=== PATIENT | male | born 1980 | race Caucasian/White ===

== ENCOUNTER 2017-05-05 10:54 | Inpatient (IN) | payer OTHER ==
[~2017-05-05] VITALS: Ht 172.7 cm; Wt 76.3 kg
[~2017-05-05 10:54] MED LIST: DELZICOL400 MG PO; GABAPENTIN400 MG PO; METRONIDAZOLE500 MG PO; PREDNISONE20 MG PO; PRILOSEC20 MG PO; VANCOMYCIN HCL125 MG PO
--- NOTE | 2017-05-05 13:38 | NUR ---
PATIENT ARRIVED TO MS UNIT FROM ED. PATIENT UP TO BATHROOM TO VOID. BACK TO BED. VS OBTAINED. PATIENT RATES ABD PAIN IN LUQ 4/10. PATIENT STATES THAT IS A TOLERABLE LEVEL FOR HIM. CALL LIGHT IN REACH.
--- NOTE | 2017-05-05 14:42 | NUR ---
PATIENT UP TO BATHROOM WITH ASSIST FROM CO. PATIENT HAD A LARGE STOOL WHICH WAS LIGHT BROWN WITH BRIGHT RED BLOOD. LOOSE/SOFT IN APPEARANCE. VOIDED. BACK TO BED. PATIENT STILL RATES PAIN ABOUT A 4/10 IN LUQ. DENIES FURTHER NEEDS. CALL LIGHT IN REACH.
--- NOTE | 2017-05-05 14:49 | NUR ---
PT IS RESTING IN BED SAFELY WITH RESTRAINTS AND TWO GUARDS IN ROOM. PT DID NOT NEED ANYTHING AT THE MOMENT
--- NOTE | 2017-05-05 15:34 | NUR ---
AMBULATED TO BATHROOM WITH ASSIST FROM CO. BACK TO BED. C/O INCREASING PAIN 09/18. PAIN MEDICATION ADMINISTERED PER JUN. DENIES FURTHER NEEDS. CALL LIGHT IN REACH.
--- NOTE | 2017-05-05 15:59 | NUR ---
PATIENT PASSED SMALL AMOUNT OF BRIGHT RED BLOOD MIXED WITH MUCOUS (ABOUT 5CC) VIA RECTUM. URINE CLEAR YELLOW.
[2017-05-05] MEDS ORDERED: OMEPRAZOLE20 MG PO (16:08)
[2017-05-05] MEDS ORDERED: ZYRTEC10 MG PO (16:08)
[2017-05-05] MEDS ORDERED: CULTURELLE1 EACH PO (16:08)
--- NOTE | 2017-05-05 16:11 | NUR ---
MED REC COMPLETE
--- NOTE | 2017-05-05 17:00 | NUR ---
patient resting in bed. mouth swabs delivered. patient rates luq pain 3/10. denies the need for pain medication. call light in reach.
--- NOTE | 2017-05-05 18:00 | NUR ---
PATIENT UP TO BATHROOM. PASSED MORE BLOODY STOOL. VOIDED. BACK TO BED. STATES HE FEELS LIGHTHEADED AND DIZZY. OBTAINED VS. HR IN THE 120'S. CALLED DR. CASTRO AND LEFT A MESSAGE. PATIENT RATING PAIN A 7/10 IN LUQ. ADMINISTERED DILAUDID PER MAR. PATIENT STATES HE FEELS THE WAY HE DID BEFORE HE WAS "ADMITTED TO THE CCU LAST TIME." PATIENT APPEARS TO BE VERY ANXIOUS AT THIS POINT. STATES HE FEELS DEHYDRATED. CALL LIGHT IN REACH.
--- NOTE | 2017-05-05 18:36 | NUR ---
STARTED IV BOLUS. PATIENT STATES PAIN IS BETTER AFTER PAIN MEDICATION. PATIENT APPEARS MUCH MORE RELAXED.
--- NOTE | 2017-05-05 19:40 | NUR ---
PT IN BED, [address] 2 LUIZ ROY IN ROOM WITH PT. DR CASTRO IN ROOM ASSESSING PT AND EXPLAINED PROS AND CONS AF AM COLONOSCOPY. PERMIT SIGNED. PT DENIES HAVING ANY QUESTIONS
--- NOTE | 2017-05-05 20:00 | NUR ---
RECEIVED REPORT AT 1900. FOUND PT IN BED WITH 2 GUARDS AT BEDSIDE. MD CASTRO WAS AT BEDSIDE WELL. PT HAD NO IMEDIATE CONCERNS.
--- NOTE | 2017-05-05 22:00 | NUR ---
HR RATE IS 90'S -110. TEMP IS 99.8. OTHER V/S ARE WDL. ABD SOUNDS ARE PRESENT, PT NOW IS DRINKING BOWEL PREP. BLOODY BM'S CONTINUE THE SAME SINCE ADMISSION. ABD IS MILDLY DISTENDED ACCORDING TO PT. LUQ AND LLQ ARE TENDER TO TOUCH. ALL LOBES ARE CLEAR, NO PERIPHERAL EDEMA NOTED. PT DENIES N/V SO FAR, PAIN IS TOLERABLE STATED BY PT. WILL CONTINUE TO MONITOR.
--- NOTE | 2017-05-05 23:00 | NUR ---
PT HAD ONE EPISODE OF EMESIS 400ML. I BELIEVE HE DRANK THE BOWEL PREP TOO FAST. 8MG OF ZOFRAN WAS GIVEN.
--- NOTE | 2017-05-06 00:15 | NUR ---
PT IS IN BED RESTING. PT STATED THAT HE NAUSEA IS BETTER.
--- NOTE | 2017-05-06 02:05 | NUR ---
V/S ARE WDL. HIS TEMP IS NORMAL, HIS HR AT THIS TIME IS IN THE 80'S. PT LOOKS A LITTLE PALLOR NOW THAN AT START OF SHIFT. RUQ, LUQ,RLQ ARE HYPOACTIVE IN REGARDS TO BOWEL TONES AT THIS TIME. LLQ HAS NORMAL ACTIVE BOWEL TONES. PT HAS HAD SEVERAL BLOODY STOOLS WITH BOWEL PREP. HE HAS ABOUT 400ML MORE TO DRINK. ALL LOBES ARE CLEAR, HIS ABD SEEMS SLIGHTLY MORE DISTENDED IN COMPARISON TO START OF THIS SHIFT. HE STATES THAT HIS PAIN IS STILL TOERABLE SO FAR. WILL CONTINUE TO MONITOR.
--- NOTE | 2017-05-06 02:45 | NUR ---
I AM CALLING MD CASTRO IN REGARDS TO PT NAUSEA. I CANNOT GIVE ANY MORE PRN ZOFRAN AT THIS TIME.
--- NOTE | 2017-05-06 03:00 | NUR ---
RECEIVED ORDER FOR 12.5MG IV PHENERGAN Q16HRS PRN FROM MD CASTRO.
--- NOTE | 2017-05-06 04:00 | NUR ---
PT USED RESTROOM AGAIN, STOOL IS STILL BLOODY. PER MD CASTRO THE REST OF HIS BOWEL PREP CAN BE D/C. PT IS BACK IN BED TRYING TO SLEEP SOME.
--- NOTE | 2017-05-06 05:57 | NUR ---
PT AT START OF SHIFT HAD A HR IN 120'S, 2000ML LR BOLUS WAS GIVEN, BOWEL PREP WAS GIVEN. PT HAD SEVERAL BLOODY BM'S THROUOUT THE NIGHT. LAST BM WAS JUST LIQUID WITHOUT BLOOD PRESENT PER DANCE PROFESSOR. PT HAD N/V WITH 400ML EMESIS, PRN ZOFRAN AND PHENERGAN WAS GIVEN. NO PAIN MEDICATION NEEDED SO FAR. V/S NOW ARE ALL WDL. ABD SOUNDS AT START OF SHIFT WERE WDL, AT THIS TIME THEY ARE HYPOACITVE. ABD IS DISTENDED SOME.
--- NOTE | 2017-05-06 07:51 | NUR ---
RECIEVED BEDSIDE REPORT FROM CRISTA OAKES. PT JUST RETURNED FROM X-RAY. PT AWAKE AND ALERT. PT NPO, NAUSEA. SCOPE SCHEDULED FOR LATER TODAY. CORRECTIONAL GUARDS IN ROOM, CORRECTIONAL RESTRAINTS X2.
--- NOTE | 2017-05-06 09:10 | NUR ---
PT OFF THE FLOOR TO SCOPE. UNRESTRAINED, GUARDS WITH PT.
--- NOTE | 2017-05-06 09:22 | HP ---
[facility] [address], [place] [address] Signed ADMISSION DATE: 05/05/2017 REASON FOR ADMISSION: Ulcerative colitis in flare (most likely). HISTORY: This 37-year-old white man has been incarcerated for 13 years with 3-1/2 years remaining on his sentence. He is at [facility], and under the care of Dr. Barkley. He has also been evaluated and treated by a pan helper in [facility] and is well established to have ulcerative colitis for at least 3 years. His usual regimen includes mesalamine. He was directed to the emergency room from Dr. Barkley (presumably) today, as the patient has had recurrence of diarrhea and some rectal bleeding. He has not been systemically toxic, but has had a few weeks by the sounds of it of rectal bleeding, diarrhea, essentially ulcerative colitis in flare. Notes were reviewed from the [facility] showing that he was dehydrated and had been admitted to the [facility], where he was given normal saline. His stool was sent for assessment to include C difficile and so forth. I do not have the results of those studies. His most recent medication regimen has included prednisone 60 mg daily starting on April 14, tapering down to 10 mg every other day. He is on Zofran and Delzicol 800 mg t.i.d. He has seen pan helper, Dr. Rogers at [facility] and has been considered for biologic therapy, which the patient "holds the line on." Worried primarily of the side effects of a biologic therapy and noting that an aunt that he has with ulcerative colitis had intolerance to biologic agent within 2 doses. Surgical remedy has not been thoroughly reviewed, though the issue of an ileostomy has been described. I gather, he has not had much discussion regarding total proctocolectomy with ileoanal pull-through (J-pouch), which is a curative approach. At this time, he presented to the emergency room, was evaluated by Dr. Villalobos and although not systemically toxic, was told that he was sent here to have a colonoscopy. I directly admitted the patient site and seen given his confusing situation to better characterize his current situation initiate therapy for ulcer colitis in flare and if appropriate, initiate measures to allow for colonoscopy. PAST MEDICAL HISTORY: Does include lumbar spine surgery, having undergone a microdiskectomy in September of this year, which was curative to his chronic low back pain. REVIEW OF SYSTEMS: Electronically Signed By: LYDIA CASTRO MD 05/06/17 0922 PATIENT NAME: VERNON WOODWARD HISTORY AND PHYSICAL DATE OF : 82 PHYSICIAN: LYDIA CASTRO MD REPORT #: [id number] REPORT IS CONFIDENTIAL AND NOT TO BE RELEASED WITHOUT AUTHORIZATION [facility] [address], [place] [address] Signed He denies any shortness of breath or chest pain. He is having no hematemesis. He has had medium red bloody bowel movements since his admission. SOCIAL HISTORY: He is incarcerated as previously described. He is from [facility], where his family is. 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 He has maintained a low residue diet lately. PHYSICAL EXAMINATION: GENERAL: Pleasant white man. He does not look systemically toxic. He is mildly anxious. HEENT: Trachea is midline. Mucous membranes are slightly dry. CHEST: Clear. HEART: Regular without murmur. ABDOMEN: Nontender at this time and is not distended. EXTREMITIES: Show no clubbing, cyanosis, or edema. ABDOMEN: KUB shows a fair amount of stool within the colon. No sign of toxic megacolon at all. Note is also made of a CT scan performed in May 2016, nearly a year ago showing no particular worrisome findings other than inflammatory changes of the rectosigmoid. CT scan in March 2015 was reviewed, which showed some mid sigmoidal inflammatory change. LABORATORY DATA: Current lab studies show a white count of 5.8, hematocrit 31.1, platelets 264,000, and Chem profile, which was essentially normal including liver enzymes, which were normal. Albumin is 3.6. ASSESSMENT: The patient likely has ulcerative colitis in flare, though there is more stool in the colon than I would have expected. The blood that he has almost certainly is related to inflammatory change, no doubt related to his underlying ulcerative colitis. He does not look systemically toxic and certainly has no clinical or radiographic evidence of toxic megacolon. At this point, we will initiate a typical regimen for ulcerative colitis in flare to include hydrocortisone 100 mg IV q.8 hours, DVT prophylaxis given the increased risk of thrombosis, cytoprotection protection of the stomach and the bowel prep, anticipating colonoscopy tomorrow to assess the state of his current problem. The risks of bleeding, infection, and perforation related to colonoscopy were reviewed as well. He understands. Consideration might be made in his case, as he does like a reasonable Electronically Signed By: LYDIA CASTRO MD 05/06/17 0922 PATIENT NAME: VERNON WOODWARD HISTORY AND PHYSICAL DATE OF : 82 PHYSICIAN: LYDIA CASTRO MD REPORT #: [id number] REPORT IS CONFIDENTIAL AND NOT TO BE RELEASED WITHOUT AUTHORIZATION [address], [place] [address] Signed candidate for consideration of total proctocolectomy with ileoanal pull-through (J-pouch operation). For now, he needs to be settled down in his current problem. He seems particularly resistant to the concept of biologic agents for control of his problem though they would likely be effective generally speaking. MD ALANA Garces/EUSEBIOL /[id number] cc: MD Fitz Jaime DO Electronically Signed By: LYDIA CASTRO MD 05/06/17 0922 PATIENT NAME: VERNON WOODWARD HISTORY AND PHYSICAL DATE OF : 82 PHYSICIAN: LYDIA CASTRO MD REPORT #: [id number] REPORT IS CONFIDENTIAL AND NOT TO BE RELEASED WITHOUT AUTHORIZATION
--- NOTE | 2017-05-06 09:52 | NUR ---
05/06/17 0952 Myrtle Durant 0943 PATIENT ARRIVES SLEEPING, RESPONSIVE TO VERBAL STIMULI, SHAKES HEAD NO TO PAIN, NAUSEA, OR NEEDS, THEN BACK TO SLEEP. LAYING ON LEFT SIDE. RESP EVEN AND UNLABORED, MASK AT 6 LITERS. 0950 PATIENT SLEEPING. ROOM AIR AT 96%.
--- NOTE | 2017-05-06 11:54 | NUR ---
LAB REPORTS BLOOD IS READY. NO ORDER TO ADMINISTER AT THIS TIME.
--- NOTE | 2017-05-06 13:25 | NUR ---
assisted patient back from the br. patient tolerated ambulating well. cont to have randall blood stool. remains the same as before. no pain at this time. patient assisted to edge of bed. patient stating no other needs at this time. ivf restarted.
--- NOTE | 2017-05-06 14:50 | NUR ---
PT RESTING COMFORTABLLY, EYES CLOSED. OPENS EYES TO VOICE. PT REPORTS NO PAIN, GOAL PAIN IS 5.
--- NOTE | 2017-05-06 16:37 | NUR ---
AT 10:52 THIS MORNING I GOT THE PATIENT A CUP OF ICE AND GLASS OF APPLE JUICE.
--- NOTE | 2017-05-06 18:26 | NUR ---
PT WENT TO COLONOSCOPY THIS SHIFT. MULTIPLE BLOODY LIQUID BM. PT REPORTS MOST RECENT BM LOOKED BLACK. PT RECIEVED STEROID ENEMA THIS SHIFT, DID NOT RETAIN LONG RECOMMENDED. IV SOLUMEDROL Q 6HR. PT APPROPRIATE WITH STAFF. TOLERATING CLEAR LIQUIDS WELL. VOIDING WELL.
--- NOTE | 2017-05-06 19:30 | NUR ---
RECIEVED BEDSIDE REPORT FROM DAY SHIFT NURSE. PATIENT RESTING IN BED. STATES PAIN IS AT A TOLERABLE LEVEL. IVF INFUSING W/O DIFFICULTY. DENIES NEEDS AT THIS TIME. CALL LIGHT IN REACH.
--- NOTE | 2017-05-06 20:05 | NUR ---
ROUNDED CHARGE. PATIENT IS GETTING READY TO AMBULATE IN THE HALLWAY. PATIENT DENIES ANY PAIN. PATIENT IS ASSISTED BY X2 GUARDS. PATIENT DENIES ANY NEEDS, COMMENTS, QUESTIONS, OR CONCERNS.
--- NOTE | 2017-05-06 21:00 | NUR ---
PATIENT RESTING IN BED. UP TO BATHROOM WITH ASSIST FROM CO. VOIDED. PASSED SMALL AMOUNT OF LOOSE BLOODY/DARK GREEN STOOL. STATES PAIN AT A TOLERABLE LEVEL, RATES PAIN 4-5/10, MOST SEVERE IN LUQ. LUNGS CLEAR, HR REGULAR, BS ACTIVE. REFILLED WATER PITCHER. CRANBERRY JUICE DELIVERED. PATIENT DENIES FURTHER NEEDS. CALL LIGHT IN REACH.
--- NOTE | 2017-05-06 21:44 | NUR ---
VITALS AND I&OS DONE AND CHARTED. BEDSIDE TABLE AND CALL LIGHT WITHIN REACH.
--- NOTE | 2017-05-06 22:59 | NUR ---
ASSISTED PATIENT WITH SHOWER SETUP. PATIENT PASSED SMALL AMOUNT OF BLOODY STOOL. QUARTER SIZED CLOT NOTED IN STOOL. VOIDING PALE YELLOW. DENIES FURTHER NEEDS.
--- NOTE | 2017-05-06 23:34 | NUR ---
PATIENT OUT OF SHOWER. DENIES NEEDS.
--- NOTE | 2017-05-06 23:50 | NUR ---
BED LINEN CHANGED. SCDS IN PLACE. AJ DELIVERED. PATIENT DENIES NEEDS. IVF INFUSING W/O DIFFICULY. CALL LIGHT IN REACH.
--- NOTE | 2017-05-07 02:13 | NUR ---
PT IS RESTING WITH EYES CLOSED, RESPIRATIONS EVEN AND NONLABORED. CALL LIGHT WITHIN REACH AND 2 CORRECTIONAL OFFICERS ARE IN ROOM.
--- NOTE | 2017-05-07 03:43 | NUR ---
PATIENT RESTING IN BED. UP TO BATHROOM WITH ASSISTANCE FROM CO. VOIDED AND PASSED SMALL AMOUNT OF BLOODY/MUCOUSY STOOL. DENIES NEEDS. CALL LIGHT IN REACH.
--- NOTE | 2017-05-07 04:20 | NUR ---
PT ASSESSED, HE HAS LUQ PAIN 7/10 AND WAS GIVEN PHENERGAN AND A SPLINT, NEW IV BAG HUNG. PT'S RESPIRATIONS ARE EVEN AND NONLABORED, BOWEL TONES ARE ACTIVE. PT IS GOING TO TRY TO REST, WILL CONTINUE TO MONITOR.
--- NOTE | 2017-05-07 04:26 | NUR ---
PATIENT REQUESTING FOR PAIN MEDICATION. PATIENT STATES PAIN STARTED TO FEEL LIKE A STABBING SENSATION IN HIS LUQ. HE WENT TO THE BATHROOM AND PASSED A SMALL (5-10CC) AMOUNT OF BLOODY/MUCOUSY STOOL. PAIN DID NOT GET BETTER, BUT IT NOW FEELS LIKE A CONSTANT ACHE. PATIENT STATES HE THINKS HE IS GOING TO BECOME NAUSEATED. ADMINISTERED PHENERGAN PER JUN. NOTIFIED PATIENT TO CALL IF PAIN IS NOT RELIEVED BY 0445. BOWEL TONES ARE HYPERACTIVE. NEW BAG IVF INFUSING. PATIENT DENIES FURTHER NEEDS. CALL LIGHT IN REACH.
--- NOTE | 2017-05-07 05:05 | NUR ---
PATIENT STILL C/O PAIN IN LUQ 10/18. SUPPLIED PATIENT WITH ABDOMINAL SPLINT AND WARM PACK.
--- NOTE | 2017-05-07 05:30 | NUR ---
PT SLEPT ON AND OFF THROUGHOUT THE NIGHT. PAIN AND NAUSEA INCREASED SOME LATER IN THE NIGHT AND PHENERGAN HELPED. PT CONTINUES TO HAVE ACTIVE BOWEL TONES AND BLOODY/MUCAS STOOL. HE IS VOIDING QS AND IS ON A CLEAR LIQUID DIET. PT WAS ADVISED TO SLOW DOWN ORAL INTAKE WHEN PAIN INCREASED. IV INFUSING FINE AND PT IS RECEIVING SOLU-CORTEF IV. CONTINUOUS PULSEOX ON AND SCDS. PER REPORT, AWAITING MORNING CBC TO SEE IF PRBC'S NEED TO BE INFUSED.
--- NOTE | 2017-05-07 06:26 | NUR ---
I&OS DONE AND CHARTED. FRESH ICE WATER GIVEN. PT NEEDS NOTHING ELSE AT THIS TIME. BEDSIDE TABLE AND CALL LIGHT WITHIN REACH.
--- NOTE | 2017-05-07 07:20 | NUR ---
RECIEVED BEDSIDE REPORT FROM CRISTA MAGUIRE AND CRISTA POWERS. PT SLEEPING, BREATHING EVEN AND UNLABORED. RN REPORTS PT WAS PAINFUL OVERNIGHT, HAD DIFFICULTLY SLEEPING. MULTIPLE BLOODY BM, CHANGED FROM BLACK/RED TO GREENISH MUCUSY/BLOOD THROUGHOUT THE SHIFT.
--- NOTE | 2017-05-07 07:43 | NUR ---
PATIENT IN BED ASLEEP. WHITEBOARD UPDATED.
--- NOTE | 2017-05-07 09:53 | NUR ---
CALLED DR CASTRO FOR PAIN CONTROL. PT REPORTS 10/18 PAIN. NEW TELEPHONE ORDERS OF 1) TYLENOL 650 PO Q6HR PRN PAIN OR 2) NORCO 5/325 PO Q4 PRN PAIN OR 3) MORPHINE IV 2-6MG IV Q1HR PRN.
--- NOTE | 2017-05-07 10:36 | NUR ---
PT SLEEPING FITFULLY, WAKES TO VOICE. REPORTS PAIN AT 7/10. PRN NORCO GIVEN.
--- NOTE | 2017-05-07 12:52 | NUR ---
PT UP WALKING AROUND THE UNIT. TOLERATING WELL. CORRECTIONAL OFFICERS WITH PT.
--- NOTE | 2017-05-07 13:21 | OR ---
[facility] [address], [place] [address] Signed DATE OF OPERATION: 05/05/2017 SURGEON: Lydia Castro MD PREOPERATIVE DIAGNOSIS: Known ulcerative colitis, probably currently in flare with hematochezia. POSTOPERATIVE DIAGNOSIS: Severe ulcerative colitis extending to the splenic flexure, less inflammation more proximally. PROCEDURE: Total colonoscopy to the cecum with biopsies. ANESTHESIA: Intravenous sedation propofol infusion. ANESTHESIOLOGIST: Vickie Steinberg CRNA. INDICATION: This 37-year-old white man is a patient of Dr. Jr Barkley at [facility] (the [facility]) and has been diagnosed with ulcerative colitis for the past 3 years. He has had been incarcerated for 13 years with 3-1/2 years remaining on his sentence. He has been treated with Delzicol as maintenance therapy for his ulcerative colitis, but in the past several days has had increasing abdominal pain and rectal bleeding. He was referred directly to the emergency room for "colonoscopy." Although he was not toxic in any way and clinical examination shows no sign of peritonitis. I have directly admitted him to the hospital for further consideration of his problem. Since then, he has had rectal hemorrhage significantly. He has been started on hydrocortisone 100 mg IV q.8 hours as well as other measures. He was admitted to undergo colonoscopy to ascertain the source of his rectal bleeding, which has been persistent since his admission. He understands the risks of bleeding, infection, and perforation related to colonoscopy and wished to proceed. FINDINGS: Severe ulcerative colitis was noted extending from the rectum up to and beyond the splenic flexure. More proximally, there was still ulcerative colitis, but it was far less severe. Attempted intubation of the ileum was successful and I did not push it too much given the acuity of his current situation. Electronically Signed By: LYDIA CASTRO MD 05/07/17 1321 PATIENT NAME: VERNON WOODWARD OPERATIVE REPORT DATE OF : 82 PHYSICIAN: LYDIA CASTRO MD REPORT #: [id number] REPORT IS CONFIDENTIAL AND NOT TO BE RELEASED WITHOUT AUTHORIZATION [facility] [address], [place] [address] Signed DESCRIPTION OF PROCEDURE: The patient was brought to the endoscopy suite and placed in lateral decubitus position given intravenous sedation with propofol infusional technique by the machine operator general. Digital rectal examination was normal. An Olympus video colonoscope was passed in the rectum and immediately noted was significant ulcerative colitis of the rectum. The scope was easily advanced beyond this ultimately to the transverse colon where mucosa appeared much more normal and ultimately to the cecum itself. With various manipulations, attempts were made to intubate the ileum, but it was not forthcoming and I did not push it at this point given the severity of his ulcerative colitis more distally. Biopsies were taken of the cecum. The cecum was inflamed. No question about it but certainly not as severe as the left colon, sigmoid, and rectum. Careful withdrawal of scope allowed for biopsies to be taken throughout and all the major view points. The rectum certainly was involved and was biopsied as well. The scope was removed. The patient was taken to recovery room in good condition. CONCLUDING DIAGNOSIS: Ulcerative colitis in flare, severe, without systemic toxicity currently. PLAN: We will continue with the steroids and will initiate "Enemas" in addition considering much was bleeding as distally most likely. Long-term consideration of his management would consider 6-MP and a biologic agent (Humira), though the patient has been resistant to the idea of a biologic agent based on his knowledge of potential side effects. Another consideration of course would be total proctocolectomy with ileoanal pull-through (J-pouch), for which he would be a good candidate, I believe. MD ALANA Garces/EUSEBIOL /[id number] cc: Jr Barkley MD Electronically Signed By: LYDIA CASTRO MD 05/07/17 1321 PATIENT NAME: VERNON WOODWARD OPERATIVE REPORT DATE OF : 82 PHYSICIAN: LYDIA CASTRO MD REPORT #: [id number] REPORT IS CONFIDENTIAL AND NOT TO BE RELEASED WITHOUT AUTHORIZATION [facility] [address] [facility] [place], [place] [address] Signed Fitz Villalobos DO Electronically Signed By: LYDIA CASTRO MD 05/07/17 1321 PATIENT NAME: VERNON WOODWARD OPERATIVE REPORT DATE OF : 82 PHYSICIAN: LYDIA CASTRO MD REPORT #: [id number] REPORT IS CONFIDENTIAL AND NOT TO BE RELEASED WITHOUT AUTHORIZATION
--- NOTE | 2017-05-07 15:20 | NUR ---
PT RESTING IN BED. PT REPORTS NO PAIN, BUT HAS NOT DRANK MANY FLUIDS. REPORTS FEELING BETTER AFTER WALKING.
--- NOTE | 2017-05-07 18:48 | NUR ---
PT REPORTED PAIN/DISCOMFORT EARLY IN SHIFT. DR CASTRO NOTIFIED AND GAVE NEW ORDERS FOR PAIN MEDS. NORCO 2 TABS GIVEN AND EFFECTIVE. BOWEL MOVEMENTS STILL FREQUENT AND BLOODY, HOWEVER THEY ARE LESS LIQUID AND MORE MUCUS TEXTURED, STILL AMY BLOOD. UP WALKING HALLS, TOLERATES WELL. D/C ENEMAS, ADD MESLAMINE PO. PT IS AWARE OF SIDE EFFECTS.
--- NOTE | 2017-05-07 19:45 | NUR ---
PATIENT RESTING IN BED. C/O PAIN IN LUQ, ADMINISTERED NORCO PER PATIENT'S REQUEST. BS ACTIVE. HR REGULAR. LUNGS CLEAR. PATIENT DOES HAVE AN OCCASIONAL COUGH, STATES HE HAS HAD A "TICKLE" IN HIS THROAT FOR A FEW DAYS. ENSURE DELIVERED. PATIENT DENIES FURTHER NEEDS. SCDS APPLIED. CALL LIGHT IN REACH.
--- NOTE | 2017-05-07 20:53 | NUR ---
NEW BAG IVF INFUSING. PATIENT STATES PAIN AT A TOLERABLE LEVEL. RT IN TO TALK WITH PATIENT. CALL LIGHT IN REACH.
--- NOTE | 2017-05-07 22:42 | NUR ---
PATIENT RESTING IN BED. ADMINISTERED STEROID VIA INFUSION PUMP OVER 5 MINUTES. PATIENT STATES PAIN AT A TOLERABLE LEVEL. DENIES NEEDS. CALL LIGHT IN REACH.
--- NOTE | 2017-05-08 00:38 | NUR ---
PATIENT RESTING IN BED. DENIES NEED FOR PAIN MEDICATION AT THIS TIME. CALL LIGHT IN REACH.
--- NOTE | 2017-05-08 01:37 | NUR ---
PATIENT C/O PAIN IN LUQ, 09/18. ADMINISTERED NORCO PER JUN. BS HYPERACTIVE. PATIENT UP TO BATHROOM INDEPENDENTLY. PATIENT HAD A BM, APPEARED TO BE THICK LIQUID BROWN WITH SMALL AMOUNT OF BRIGHT RED BLOOD. LUNGS CLEAR, HR REG, NO EDEMA. SCDS IN PLACE. REFILLED WATER PITCHER. PATIENT DENIES FURTHER NEEDS. CALL LIGHT IN REACH.
--- NOTE | 2017-05-08 03:32 | NUR ---
PATIENT SLEEPING. IVF INFUSING W/O DIFFICULTY. CALL LIGHT IN REACH.
--- NOTE | 2017-05-08 05:37 | NUR ---
PATIENT UP TO BATHROOM INDEPENDENTLY. PASSED SMALL AMOUNT OF BLOODY/MUCOUS LIQUID STOOL. PATIENT DENIES NEED FOR PAIN MEDICATION. CALL TSE IN REACH.
--- NOTE | 2017-05-08 07:41 | NUR ---
RECIEVED BEDSIDE REPORT FROM CRISTA POWERS. PT AWAKE AND ALERT IN BED. OFFICERS AT BEDSIDE. DENIES PAIN AT THIS TIME. FLUIDS RUNNING.
--- NOTE | 2017-05-08 10:09 | NUR ---
PT HAD SHOWER. WOULD LIKE GAUZE UNDER WRIST RETRAINTS. GAUZE PROVIDED.
--- NOTE | 2017-05-08 11:37 | NUR ---
PT IN BED. WALKING AROUND IN ROOM. LINEN CHANGE. SET UP FOR SHOWER.
--- NOTE | 2017-05-08 14:43 | NUR ---
UPDATED RN AT [facility] RE: PT CONDITION AND ESTIMATED RETURN TO THE FACILITY. ADVISED UPDATE FROM DR CASTRO.
--- NOTE | 2017-05-08 14:46 | NUR ---
PT SAID HE WAS HAVING PROBLEMS WITH DIAREHA LET NURSE DANIELA KNOW
--- NOTE | 2017-05-08 15:06 | NUR ---
ATTEMPTING TO CALL DR CASTRO TO CLARIFY NEW IV STEROID ORDER. UNABLE TO REACH HIM AND UNABLE TO LEAVE A MSG.
--- NOTE | 2017-05-08 16:30 | NUR ---
DALIA VALENTINO OF DR CASTRO WHO CHANGED THE ORDER TO 50MG OF IV SOLUMEDROL. ORDERS AND NOTES NOW MATCH. SOLUMEDROL WAS LATE ORDER WAS VERIFIED.
--- NOTE | 2017-05-08 18:05 | NUR ---
PT HAD DECREASE IN FREQUENCY OF BLOODY BMS. CONSISTANCY IS THICKENING WELL. AMOUNT OF BLOOD HAS REMAINED THE SAME. PT REPORTS PAIN JUST PRIOR TO BM AND JUST AFTER BM, WITH PAIN AFTER MORE SEVERE. NORCO GIVEN FOR PAIN X2. TAPER OF IV SOLUMEDROL STARTED, NEW ORDER 50MG. MAY ADD FULL LIQUID ITEMS THAT DO NOT HAVE FIBER, CONTINUE CLEARS AND ENSURE.
--- NOTE | 2017-05-08 21:52 | NUR ---
PT LAYING IN BED, 4 POINT RESTRAINTS, GAURDS X2 IN ROOM. PT RATES PAIN AT 8/10, GAVE NORCO FOR PAIN. PT ALERT AND ORIENTED X4, PLEASENT DEMEANOR. BOWEL TONES PRESENT. HAT AND URINAL IN PLACE NOW, PT REPORTS HE HAS NOT HAD THEM FOR A WHILE TODAY DUE TO "HOUSECLEANING THREW THEM AWAY." PT HAS NEEDS AT THIS TIME. CALL LIGHT IN REACH.
--- NOTE | 2017-05-08 23:04 | NUR ---
PT UP TO BATHROOM TO VOID. NO NEEDS AT THIS TIME. RATES PAIN AT 4/10, STATES "ITS OKAY NOW." GAURDS REMAIN IN ROOM.
--- NOTE | 2017-05-09 01:56 | NUR ---
PT APPEARS TO BE SLEEPING. PT GIVEN EAR PLUGS PER REQUEST EARLIER IN SHIFT. LIGHTS OFF IN ROOM, TV ON. GUARDS X2.
--- NOTE | 2017-05-09 03:49 | NUR ---
PT UP TO BATHROOM. AMBULATING WELL. NO COMPLAINTS AT THIS TIME. GUARDS X2.
--- NOTE | 2017-05-09 04:03 | NUR ---
pt complaining of 7/10 pain in abd, gave norco for pain. pt states "its not as bad as it was, but its starting to sneak up again." gave fresh ice water. small amount of liquid/mucousy brown/red stool out. pt voiding well.
--- NOTE | 2017-05-09 04:51 | NUR ---
PT HAD UNEVENTFUL NIGHT, SLEPT MAJORITY OF SHIFT. TWO SMALL RED TINGED, BROWN MUCOUSY STOOL. PAIN WELL CONTROLLED WITH NORCO. DENIED NAUSEA. 4 POINT RESTRAINTS, SKIN INTACT, NO REDDNESS OR SWELLING. GAURDS X2 IN ROOM. PT APPROPRIATE, PLEASENT, COOPERATIVE. USES CALL LIGHT.
--- NOTE | 2017-05-09 06:29 | NUR ---
VITALS AND I&OS DONE AND CHARTED. EMPTIED ALL GARBAGES. FRESH WATER. BEDSIDE TABLE AND CALL LIGHT WITHIN REACH.
--- NOTE | 2017-05-09 07:12 | NUR ---
RECIEVED BEDSIDE REPORT FROM CRISTA LINO. PT SLEEPING SOUNDLY, BREATHING EVEN AND UNLABORED. RN REPORTED STOOLS ARE MUCH IMPROVED OVERNIGHT, NOW ONLY LIGHT BLOOD TINGED. D5LR RUNNING AT 125, ROOM AIR. ALL PERSONAL BELONGINGS IN REACH. OFFICERS AT BEDSIDE.
--- NOTE | 2017-05-09 09:00 | NUR ---
SET PATIENT UP FOR SHOWER. LINENS CHANGED. ORAL CARE SET UP FOR USE IN BATHROOM. NO OTHER NEEDS AT THIS TIME.
--- NOTE | 2017-05-09 10:28 | NUR ---
PT UP FOR SHOWER AND NOW IN CHAIR. PT REPORTS PAIN IS TOLERABLE, DENIES NEED FOR PAIN MEDS. PERSONAL BELONGINGS IN REACH. PT DRINKING ENSURE.
--- NOTE | 2017-05-09 10:39 | NUR ---
PATIENT UP AMBULATING THE HALLWAY WITH TWO GAURDS. FRESH ICE WATER GIVEN. WARM BLANKET GIVEN.
--- NOTE | 2017-05-09 10:40 | NUR ---
PT UP WALKING IN THE HALLS WITH OFFICERS.
--- NOTE | 2017-05-09 11:00 | NUR ---
CALLED DR CASTRO TO CHANGE IV FLUIDS DUE TO PHARMACY RUNNING LOW ON D5LR. DR CASTRO GAVE TELEPHONE ORDER TO SALINE LOCK PT.
--- NOTE | 2017-05-09 11:30 | NUR ---
PATIENT RESTING IN BED WITH EYES CLOSED. GAURDS IN ROOM. NO NEEDS AT THIS TIME.
--- NOTE | 2017-05-09 13:06 | NUR ---
PT UP WALKING IN THE [place]WA[place] WITH OFFICERS.
--- NOTE | 2017-05-09 13:20 | NUR ---
PATIENT SITTING ON THE EDGE OF BED. ORDERED PATIENT A LOW FIBER MEAL. CALL BUTTON IN REACH. FRESH ICE WATER GIVEN. NO OTHER NEEDS AT THIS TIME.
--- NOTE | 2017-05-09 16:00 | NUR ---
PATIENT SITTING UP ON EDGE OF BED LOOKINT AT MENU. NO NEEDS AT THIS TIME.
--- NOTE | 2017-05-09 16:43 | NUR ---
CARE CONFERENCE STAFF: DR CASTRO, MYSELF CASE MANAGEMENT, MARK BENITEZ RN, DANIELA RN. DR CASTRO DISCUSSED PT IS PROBABLE DC BACK TO FACILITY TOMORROW.
--- NOTE | 2017-05-09 18:03 | NUR ---
PATIENT RESTING IN BED WATCHING TV. FRESH ICE WATER GIVEN. NO OTHER NEEDS AT THIS TIME.
--- NOTE | 2017-05-09 18:31 | NUR ---
PT'S BOWEL MOVEMENTS ARE LESS FREQUENT AND LESS BLOODY. PT REPORTS PAIN BEFORE AND AFTER BM. PRN NORCO GIVEN X2, EFFECTIVE. IV FLUIDS D/C, IV STEROIDS D/C. DIET ADVANCED TO LOW RES, TOLERATES WELL. PT UP AMBULATING IN HALLS WITH OFFICERS.
--- NOTE | 2017-05-09 21:16 | NUR ---
PT IV IS DIFICULT TO FLUSH. NO SWELLING OR PAIN. PT STATED HE FEELS "PREASURE" AT THE SITE.
--- NOTE | 2017-05-09 21:39 | NUR ---
PT IN BED WATCHING TV. PAIN 09/18. NORCO GIVEN. PT TRIED TO GO TO BATHROOM WITH NO LUCK. PT IN 4 POINT SHACKLES. 2 GAURDS AT BEDSIDE. SL IN L FOREARM. NO FURTHER NEEDS AT THIS TIME.
--- NOTE | 2017-05-09 23:44 | NUR ---
PT REPORTED PAIN 10/18. NORCO GIVEN.
--- NOTE | 2017-05-10 00:47 | NUR ---
PT IN BED. BOWEL MOVEMENT WAS SOFT LIQUID. COLOR BROWN WITH TINGE OF BLOOD COLOR. PT REPORTS A DECREASE IN PAIN. NO OTHER NEEDS AT THIS TIME.
--- NOTE | 2017-05-10 01:57 | NUR ---
PT REPORTS PAIN IS AT A TOLLERABLE LEVEL @ 07/19. PT WATCHING TV. RR EQUAL AND UNLABORED. 2 GAURDS AT BED.[address] PT COOPERATIVE WITH PLAN OF CARE. CALL LIGHT WITHIN REACH.
--- NOTE | 2017-05-10 02:54 | NUR ---
PT REPORTS 6/10 PAIN. INDICATIED HE WOULD LIKE TO WAIT A WHILE FOR PAIN MEDICATION. NO FURTHER NEEDS AT THIS TIME. CALL LIGHT WITHIN REACH.
--- NOTE | 2017-05-10 03:23 | NUR ---
PT REQUESTED PAIN MEDICATION. REPORTS PAIN 0OF /10. 2 NORCO GIVEN. CALL LIGHT WITHIN REACH. REPORTS NO FURTHER NEEDS AT THIS TIME.
--- NOTE | 2017-05-10 04:58 | NUR ---
pt appears to be sleeping. rr wnl and unlabored. [address] guards x2 in room.
--- NOTE | 2017-05-10 06:57 | NUR ---
PT UP TO BATHROOM. INDEPENDANT. TOLERATES AMBULATING WELL. STEADY ON FEET. NO NAUSEA. PAIN IS "OKAY FOR NOW." GAVE FRESH ICE WATER. CALL LIGHT IN REACH.
--- NOTE | 2017-05-10 07:26 | NUR ---
BEDSIDE RPEORT. PT UP TO BATHROOM. INDEPENDENT IN ROOM. TWO CORRECTIONAL GUARDS AT BEDSIDE.
--- NOTE | 2017-05-10 07:56 | NUR ---
Patient with 8/10 abd pain after several bites of breakfast. 2 Seth given. Patient up to bathroom independantly. X2 guards in room.
--- NOTE | 2017-05-10 09:00 | NUR ---
PATIENT AMBULATING IN HALLWAY WITH GASYEDADS.
--- NOTE | 2017-05-10 09:30 | NUR ---
pt up ambualting in halls at this time
--- NOTE | 2017-05-10 10:41 | NUR ---
PT HAD BM, LIQUID WITH SMALL SOFT FORMED PIECES, LIQUID PORTION WAS OF CRANBERRY COLOR. PT REPORTS INCREASED PAIN WITH ACTIVITY AND BM. PAIN COVERAGE WAS GIVEN AT 0800
--- NOTE | 2017-05-10 10:51 | NUR ---
PATIENT SITTING AT EDGE OF BED. STATES HE IS IN PAIN AND IS WORRIED ABOUT HIS BOWEL MOVEMENTS. RN INTO SEE PATIENT. PATIENT WILL CALL FOR BATH WIPES FOR THE NEXT TIME HE GOES TO THE BATHROOM. CLEAN GOWN AND WASH CLOTHES AND ORAL CARE GIVEN.
[2017-05-10] MEDS ORDERED: HYDROCODON-ACE1 EA10 PO (12:30)
[2017-05-10] MEDS ORDERED: MAPAP325 MG PO (12:30)
--- NOTE | 2017-05-10 12:30 | NUR ---
REPORTED TO CHARACTERISTICS OF PT LAST BM.
[2017-05-10] MEDS ORDERED: OMEPRAZOLE20 MG PO (12:52)
[2017-05-10] MEDS ORDERED: PREDNISONE20 MG PO (12:52)
[2017-05-10] MEDS ORDERED: NORCO 5-325 TA1 EACH PO (12:52)
[2017-05-10] MEDS ORDERED: CULTURELLE1 EACH PO (12:52)
[2017-05-10] MEDS ORDERED: DELZICOL400 M1 PO (12:52)
--- NOTE | 2017-05-10 14:50 | NUR ---
PT EDUCATION GIVEN ON DIET RESTRICTIONS, ACTIVITY, MEDICATIONS, THAT WILL FOLLOW UP AT FACILITY. PT VERBALIZED HE UNDERSTANDS ALL SIDE EFFECTS OF MEDICATIONS. RANJANA FROM PHARMACY CONCULTED ON MEDICATIONS WELL.
--- NOTE | 2017-05-10 15:07 | NUR ---
REPORT CALLED TO LUIZ RIOS RN
--- NOTE | 2017-05-11 14:21 | DS ---
[facility] [address], [place] [address] Signed ADMISSION DATE: 05/08/2017 DISCHARGE DATE: 05/10/2017 REASON FOR ADMISSION: Ulcerative colitis in flare. HISTORY OF PRESENT ILLNESS: This 37-year-old white man has been incarcerated for 13 years at [facility], and has 3-1/2 years remaining on this since. He is under the care of Dr. Barkley at [facility] and has been under the care of a communications technologist, Dr. Rogers in [facility]. This is for ulcerative colitis, which he has had for about 3 years. The usual regimen of medication includes mesalamine. He was directed to the emergency room from Dr. Barkley earlier in the day with recurrence of diarrhea and rectal bleeding without systemic toxicity. He had recently been treated with prednisone April 14, at 60 mg daily tapering 10 mg every other day, but has been having abdominal pain and some blood per rectum. He was directed to the emergency room by Dr. Barkley and recommended to have colonoscopy promptly. The patient's evaluation showed him not to be systemically toxic and he had only mild abdominal tenderness, but he was directly admitted to my service for further management. Upon admission to the hospital, he began having fair amount of bloody stools mixed with mucus. PERTINENT PHYSICAL EXAM: GENERAL: At the time of admission showed a pleasant white man who did not look systemically toxic. He was mildly anxious. HEENT: Trachea is midline. Mucous membranes slightly dry. CHEST: Clear. ABDOMEN: Nontender and nondistended. EXTREMITIES: Showed no clubbing, cyanosis, or edema. DIAGNOSTIC DATA: KUB showed a fair amount of stool within the colon, but no sign of toxic megacolon. CT scan had been performed in May 2016, nearly a year previously showing no worrisome findings other than inflammatory change of the rectosigmoid. The CT scan of March 2015, also reviewed showed mild sigmoidal inflammatory change. LABORATORY DATA: Admission lab study showed a white count of 5.8, hematocrit 31.1, and platelets 264,000. Chem profile was essentially normal. Albumin was 3.6. Electronically Signed By: LYDIA CASTRO MD 05/11/17 1421 PATIENT NAME: VERNON WOODWARD DISCHARGE SUMMARY DATE OF : 82 PHYSICIAN: LYDIA CASTRO MD REPORT #: [id number] REPORT IS CONFIDENTIAL AND NOT TO BE RELEASED WITHOUT AUTHORIZATION [facility] [address] [place] [id number] Signed HOSPITAL COURSE: He was admitted with the clinical diagnosis of ulcerative colitis and flare. He was treated with intravenous steroids, hydrocortisone 100 mg IV q.8 hours given DVT prophylaxis, given hypercoagulable state of inflammatory bowel disease and cytoprotection of the stomach based on his steroid use. On May 05, 2017, he underwent colonoscopy following a bowel preparation. This did show severe ulcerative colitis of the rectum, rectosigmoid and left colon. Less inflammation noted on the transverse and right colon. Biopsies were obtained. He was advanced to liquids and given mesalamine orally administered in addition to his steroids. He was transitioned to prednisone 40 mg p.o. daily and advanced his diet to a low-fiber type diet. Pepcid was used as cytoprotectant anticipating transition to oral agent of a PPI type. Within a few days, his symptoms markedly improved, having no further grossly bloody bowel movements, only pink tinged and mucoid bowel movements, but much improved. He had no abdominal tenderness by the time of discharge either. It is anticipated he will be on a tapering dose of his steroids and continue with his mesalamine and be treated with [place] for pain as needed as well as Tylenol. He should strictly avoid Motrin given its adverse affects of inflammatory bowel disease. DISCHARGE MEDICATIONS: Include prednisone 40 mg p.o. daily x2 weeks, 30 mg p.o. daily x2 weeks, 10 mg p.o. daily x2 weeks, then 10 mg p.o. every other day x2 weeks. He will restart his Delzicol 800 mg p.o. t.i.d. Continue with omeprazole 20 mg p.o. daily. Continue with Zyrtec 10 mg p.o. daily and his probiotic, Culturelle one capsule p.o. b.i.d. He will maintain on low-fiber diet in the meantime. DISCHARGE DIAGNOSIS: Ulcerative colitis in flare. PLAN: He will see me back in the Surgery Clinic at the [facility] on my next visit. Though he maintains contact with a communications technologist in the [facility], consideration might be made at some point for addition of 6MP or possibly Humira. However, a definitive approach of total proctocolectomy with ileoanal pull-through (J-pouch) may be a consideration as I believe him to be a good candidate for that approach. Electronically Signed By: LYDIA CASTRO MD 05/11/17 1421 PATIENT NAME: VERNON WOODWARD DISCHARGE SUMMARY DATE OF : 82 PHYSICIAN: LYDIA CASTRO MD REPORT #: [id number] REPORT IS CONFIDENTIAL AND NOT TO BE RELEASED WITHOUT AUTHORIZATION [address] [address] Signed MD ALANA Garces/MODL /[id number] cc: Jr Barkley MD Electronically Signed By: LYDIA CASTRO MD 05/11/17 1421 PATIENT NAME: VERNON WOODWARD DISCHARGE SUMMARY DATE OF : 82 PHYSICIAN: LYDIA CASTRO MD REPORT #: [id number] REPORT IS CONFIDENTIAL AND NOT TO BE RELEASED WITHOUT AUTHORIZATION
== END 2017-05-10 15:06 | disposition home or self-care (01) | DRG 386 ==
LOC: ED 10:54 → MS 10:57 → ED 13:02 → MS 05-08 10:00
PROVIDERS: ADMIT Surgery
PROC: 0DBH8ZX Excision of Cecum, Via Natural or Artificial Opening Endoscopic, Diagnostic (ICD-10-PCS; principal; 2017-05-05)
DX: K51.918 Ulcerative colitis, unspecified with other complication (principal); K92.1 Melena; G89.29 Other chronic pain; M54.5 Low back pain
CPT/HCPCS: 36415; 74020; 74022; 80053; 82247; 82465; 83615; 84100; 84478; 84550; 85025; 86140; 86850; 86900; 86901; 86920; 90674; 94762; 96360; 96361; 96374; 96375; 96376; 99156; 99157; 99285; G0008; G0378; J1170; J1720; J2250; J2405; J2550; J2704; J3010; J7030; J7120; J7512

== ENCOUNTER 2017-05-11 09:45 | Emergency (ER) | payer OTHER ==
[~2017-05-11] VITALS: Ht 172.7 cm; Wt 76.3 kg
[~2017-05-11 09:45] MED LIST changes: +CULTURELLE1 EACH PO; +DELZICOL400 M1 PO; +HYDROCODON-ACE1 EA10 PO; +MAPAP325 MG PO; +NORCO 5-325 TA1 EACH PO; +OMEPRAZOLE20 MG PO; +ZYRTEC10 MG PO
== END 2017-05-11 17:01 | disposition short-term general hospital (02) ==
LOC: ED 09:45
DX: K50.90 Crohn's disease, unspecified, without complications (principal); F17.200 Nicotine dependence, unspecified, uncomplicated; Z88.6 Allergy status to analgesic agent; Z88.8 Allergy status to other drugs, medicaments and biological substances; Z79.52 Long term (current) use of systemic steroids; Z79.899 Other long term (current) drug therapy
CPT/HCPCS: 71045; 80053; 81001; 83605; 85025; 87040; 87502; 96361; 96365; 96368; 96375; 96376; 99285; J1956; J2405; J7120